=== PATIENT | female | born 1960 | race Caucasian/White ===

== ENCOUNTER 2021-02-18 19:40 | Emergency (ER) | payer BC ==
[~2021-02-18] VITALS: Ht 157.5 cm; Wt 92.5 kg
== END 2021-02-19 02:20 | disposition home or self-care (01) ==
LOC: ER1 19:40
DX: U07.1 COVID-19 (principal); Z23 Encounter for immunization
CPT/HCPCS: 99283; M0243; U0002

== ENCOUNTER → 2021-10-07 | Outpatient (CLI) | payer BC | LOC: KOH-I 13:55 | DX: Z87.891 Personal history of nicotine dependence (principal); R91.8 Other nonspecific abnormal finding of lung field | CPT/HCPCS: 71271 ==

== ENCOUNTER → 2021-10-19 | Outpatient (CLI) | payer BC | LOC: MAMO 07:55 | DX: Z12.31 Encounter for screening mammogram for malignant neoplasm of breast (principal) | CPT/HCPCS: 77063; 77067 ==